=== PATIENT | male | born 1945 | race Caucasian/White ===

== ENCOUNTER 2017-12-12 14:39 | Emergency (ER) | payer BC ==
[~2017-12-12] VITALS: Ht 172.7 cm; Wt 93.4 kg
[2017-12-12 16:33] LABS: Albumin 3.9 g/dL (3.4-5.0); Calcium 9.2 mg/dL (8.5-10.1)
[2017-12-12 16:53] LABS: Basophils # (auto) 0 uL; Eosinophils # (auto) 0 uL; Mean Corpuscular Hemoglobin 34.6 pg (28.0-32.0); Mean Corpuscular Hgb Conc. 34.2 g/dL (32.0-36.0)
[2017-12-12 16:56] LABS: Basophils % (auto) 0.4 % (0.0-2.0); Eosinophils % (auto) 0.1 % (0.0-7.0); Hemoglobin 16.4 g/dL (13.5-17.5); Lymphocytes % (auto) 11.3 % (10.0-50.0); Mean Corpuscular Volume 101.4 fL (80.0-100.0); Monocytes # (auto) 0.6 uL; Monocytes % (auto) 6.2 % (0.0-12.0); Neutrophils # (auto) 7.2 uL; Nucleated Red Blood Cells % 0.1 %; Platelet Count (auto) 165 10^3/uL (140-450); Red Blood Cells 4.74 10^6/uL (4.5-5.90); Red Cell Distribution Width 14.1 % (11.8-14.3); White Blood Cell 8.8 10^3/uL (4.4-10.8)
[2017-12-12 17:37] VITALS: BP 167/82
== END 2017-12-12 18:05 | disposition home or self-care (01) ==
LOC: ER 14:39
DX: R55 Syncope and collapse (principal); E11.9 Type 2 diabetes mellitus without complications; E78.5 Hyperlipidemia, unspecified; I10 Essential (primary) hypertension; M10.9 Gout, unspecified
CPT/HCPCS: 36415; 80053; 85025; 93005

== ENCOUNTER 2025-03-21 13:21 | Emergency (ER) | payer BC ==
[~2025-03-21] VITALS: Ht 172.7 cm; Wt 110.2 kg
--- NOTE | 2025-03-21 13:51 | ED.PDOC ---
SOB-HPI HPI Comments 79-year-old male who comes in with chief complaint of shortness a breath since about 630 this morning. The patient has been coughing with some phlegm and congestion. There has also been some nausea and vomiting. The patient states that he was admitted to another facility where he was told that he may have pneumonia but he does not take antibiotics at this time. In the past he has been seen at [facility]. EN route, the patient was Accu-Chek was 229 the patient was given an inhaler which she tried at home with no relief. Upon arrival, the patient was able to speak in full sentences but is still complaining of some shortness a breath. The patient received Zofran 4 mg IV push for the nausea EN route Time Seen by MD: 13:30 Primary Care Provider: DR RAI Reviewed notes: Nurses Notes, Medications, Allergies (No allergies to medications) Information Source: Patient, Emergency Med Personnel Mode of Arrival: EMS Severity: Mild Timing: Hours Duration: Since onset Context: At Rest PE Risk Factors: Immobilization History of: COPD Prehospital treatment: Accucheck (229), IVF Associated Signs and Symptoms: Chest Pain Quality: Pressure Radiation: No Radiation If cough with SOB: Productive (Green phlegm) Past Medical History PAST MEDICAL HISTORY: COPD, DM, Gout, High Lipids, HTN Surgical History: Denies all surgeries Family History Family History: Family hx of Cancer, Family hx of heart phoebe Social History Smoker: Non-Smoker Alcohol: Occasionally Drugs: Marijuana Lives In: Home Constitutional: denies: chills, diaphoresis, fatigue, fever, malaise, sweats, weakness, others EENTM: denies: blurred vision, double vision, ear bleeding, ear discharge, ear drainage, ear pain, ear ringing, eye pain, eye redness, hearing loss, mouth pain, mouth swelling, nasal discharge, nose bleeding, nose congestion, nose pain, photophobia, tearing, throat pain, throat swelling, voice changes, others Respiratory: reports: cough, shortness of breath; denies: hemoptysis, ort hopnea, SOB at rest, SOB with excertion, stridor, wheezing, others Cardiovascular: denies: chest pain, dizzy spells, diaphoresis, Dyspnea on exertion, edema, irregular heart beat, left arm pain, lightheadedness, palpitations, PND, syncope, others Gastrointestinal: denies: abdomen distended, abdominal pain, blood streaked bowels, constipated, diarrhea, dysphagia, difficulty swallowing, hematemesis, melena, nausea, poor appetite, poor fluid intake, rectal bleeding, rectal pain, vomiting, others Genitourinary: denies: burning, dysuria, flank pain, frequency, hematuria, i ncontinence, penile discharge, penile sore, pain, testicle pain, testicle swelling, urgency, others Neurological: denies: dizziness, fainting, headache, left sided numbness, left sided weakness, numbness, paresthesia, pre-existing deficit, right sided numbness, right sided weakness, seizure, speech problems, tingling, tremors, weakness, others Musculoskeletal: denies: back pain, gout, joint pain, joint swelling, muscle pain, muscle stiffness, neck pain, others Integumetry: denies: bruises, change in color, change in hair/nails, dryness, laceration, lesions, lumps, rash, wounds, others Allergic/Immunocompromised: denies: Difficulty Healing, Frequent Infections, Hives, Itching, others Hematologic/Lymphatic: denies: anemia, blood clots, easy bleeding, easy bruising, swollen glands, others Endocrine: denies: excessive hunger, excessive sweating, excessive thirst, excessive urination, flushing, intolerance to cold, intolerance to heat, unexplained weight gain, unexplained weight loss, others Psychiatric: denies: anxiety, bipolar disorder, depression, hopeless, panic disorder, schizophrenia, sleepless, suicidal, others Physical Exam General Appearance: Moderate Distress, Obese HEENT: Normal ENT Inspection, Pharynx Normal, TMs Normal Neck: Full Range of Motion, Non-Tender, Normal, Normal Inspection Respiratory: Chest Non-Tender, Decreased Breath Sounds, Lungs Clear, No Accessory Muscle Use, Normal Breath Sounds Cardiovascular: No Edema, No JVD, No Murmur, No Gallop, Normal Peripheral Pulses, Regular Rate/Rhythm Breast Exam: Deferred Gastrointestinal: No Organomegaly, Non Tender, No Pulsatile Mass, Normal Bowel Sounds, Soft Genitalia: Deferred Pelvic: Deferred Rectal: Deferred Extremities: No calf tenderness, Normal capillary refill, Normal inspection, Normal range of motion, Non-tender, No pedal edema Musculoskeletal : Apperance: Normal Neurologic: Alert, erp technical lead II-XII nml as Tested, No Motor Deficits, Normal Affect, Normal Mood, No Sensory Deficits Cerebellar Function: Normal Reflexes: Normal Skin: Dry, Normal Color, Warm Lymphatic: No Adenopathy EKG EKG : Pulse Rate (adult): 84 [place]: Normal Cardiac Rhythm: NSR Block: None ST: Nonsp Was a procedure done? Was a procedure done?: No Differential Dx Differential Diagnosis: Asthma, Bronchitis, CHF, COPD, Pneumonia X-Ray, Labs, Meds, VS Vital Signs Date Time Temp Pulse Resp B/P (MAP) Pulse Ox O2 Delivery O2 Flow Rate FiO2 03/21/25 15:15 96.3 83 24 180/90 (120) 99 96.3 03/21/25 13:51 84 03/21/25 13:41 84 Lab Test 03/21/25 17:06 03/21/25 16:01 03/21/25 15:24 03/21/25 15:10 Range/Units Troponin I High Sensitivity 18 12 </=54 ng/L Lactic Acid Level 2.0 0.4-2.0 mmol/L Urine Color Light-yellow Yellow Urine Clarity Clear Clear Urine pH 6.0 5.0-9.0 Urine Specific [place] 1.027 1.001-1.035 Urine Protein Trace H Negative Urine Ketones 4+ H Negative Urine Blood Negative Negative /uL Urine Nitrite Negative Negative Urine Bilirubin Negative Negative Urine Urobilinogen Normal Negative mg/dL Urine Leukocyte Esterase Negative Negative /uL Urine RBC 1 0 - 3 /hpf Urine Microscopic WBC 1 0-3 /HPF Urine Squamous Epithelial Cells Few <5 /hpf Urine Bacteria None seen None Seen /hpf Urine Glucose 4+ H Normal mg/dL Test 03/21/25 14:16 Range/Units White Blood Count 9.6 4.4-10.8 10^3/uL Red Blood Count 5.29 4.5-5.90 10^6/uL Hemoglobin 17.4 13.5-17.5 g/dL Hematocrit 50.3 41.0-53.0 % Mean Corpuscular Volume 95.1 80.0-100.0 fL Mean Corpuscular Hemoglobin 33.0 H 28.0-32.0 pg Mean Corpuscular Hemoglobin Concent 34.7 32.0-36.0 g/dL Red Cell Distribution Width 13.5 11.8-14.3 % Platelet Count 223 140-450 10^3/uL Mean Platelet Volume 9.0 6.9-10.8 fL Neutrophils (%) (Auto) 89.4 H 37.0-80.0 % Lymphocytes (%) (Auto) 8.0 L 10.0-50.0 % Monocytes (%) (Auto) 2.2 0.0-12.0 % Eosinophils (%) (Auto) 0.0 0.0-7.0 % Basophils (%) (Auto) 0.4 0.0-2.0 % Neutrophils # (Auto) 8.6 1.6-8.6 10 ^3/uL Lymphocytes # (Auto) 0.8 0.4-5.4 10 ^3/uL Monocytes # (Auto) 0.2 0-1.3 10 ^3/uL Eosinophils # (Auto) 0 0-0.8 10 ^3/uL Basophils # (Auto) 0 0-0.2 10 ^3/uL Nucleated Red Blood Cells 0.1 % Sodium Level 138 136-145 mmol/L Potassium Level 4.3 3.5-5.1 mmol/L Chloride Level 105 98-107 mmol/L Carbon Dioxide Level 21 20-31 mmol/L Anion Gap 12 5-15 Blood Urea Nitrogen 23 9-23 mg/dL Creatinine 0.97 0.700-1.30 mg/dL Glomerular Filtration Rate Calc 79 >90 mL/min BUN/Creatinine Ratio 23.7 H 10.0-20.0 Serum Glucose 258 H 74-106 mg/dL Lactic Acid Level 3.5 *H 0.4-2.0 mmol/L Calcium Level 10.2 8.7-10.4 mg/dL Troponin I High Sensitivity 10 </=54 ng/L B-Type Natriuretic Peptide 77.46 0-100 pg/mL IV Hep-Lock was established The patient's CBC is within normal limits The chemistry panel is within normal limits except for an elevated glucose of 258 The patient is BNP is within normal limits The troponin levels within normal limits. The lactic acid level is elevated at 3.5 The chest x-ray is negative The patient is being admitted to the hospitalist The troponin levels negative Images Reviewed?: Images reviewed and evaluated by me Time of 1ST Reevaluation: 13:51 Reevaluation 1ST: Unchanged Patient Education/Counseling: Diagnosis, Treatment, Prognosis Family Education/Counseling: No Family Present Departure 1 Departure Time of Disposition: 17:51 Impression: Primary Impression: Acute dyspnea Additional Impressions: Generalized weakness Elevated lactic acid level Disposition: ADMITTED INPATIENT Admit to: Tele Condition: Fair Critical Care Note Critical Care Time?: Yes (45 min-critical care time only) Stability Stability form required: Yes Unstable for transfer: Telemetry monitoring (Telemetry monitoring required), ED Physician Assesment (Clinical assesment) Heart Score Heart Score: Heart Score Response (Comments) Value History Highly Suspicious 2 EKG Repolarization Disturb 1 Age >65 2 Risk Factors >3 or Hx ASHD 2 Troponin Normal limit 0 Total 7 COOKIE MONTOYA MD March 21, 2025 13:51
--- NOTE | 2025-03-21 14:09 | DVH ---
INDICATION: sob TECHNIQUE: Frontal view of the chest. COMPARISON: None FINDINGS: The heart and mediastinal contours are grossly unremarkable. There is no evidence of pleural diseas e. The lungs are clear. The bony structures of the chest are intact without fracture. IMPRESSION: 1. No evidence of acute disease.
[2025-03-21 14:43] LABS: Basophils # (auto) 0 10 ^3/uL (0-0.2); Basophils % (auto) 0.4 % (0.0-2.0); Eosinophils # (auto) 0 10 ^3/uL (0-0.8); Hematocrit 50.3 % (41.0-53.0); Hemoglobin 17.4 g/dL (13.5-17.5); Lymphocytes # (auto) 0.8 10 ^3/uL (0.4-5.4); Mean Corpuscular Hgb Conc. 34.7 g/dL (32.0-36.0); Mean Corpuscular Volume 95.1 fL (80.0-100.0); Monocytes # (auto) 0.2 10 ^3/uL (0-1.3); Monocytes % (auto) 2.2 % (0.0-12.0); Neutrophils # (auto) 8.6 10 ^3/uL (1.6-8.6); Neutrophils % (auto) 89.4 % (37.0-80.0); Nucleated Red Blood Cells % 0.1 %; Platelet Count (auto) 223 10^3/uL (140-450); Red Blood Cells 5.29 10^6/uL (4.5-5.90); Red Cell Distribution Width 13.5 % (11.8-14.3); White Blood Cell 9.6 10^3/uL (4.4-10.8)
[2025-03-21 14:50] LABS: Anion Gap 12 (5-15); Carbon Dioxide 21 mmol/L (20-31); Chloride 105 mmol/L (98-107); Potassium 4.3 mmol/L (3.5-5.1); Sodium 138 mmol/L (136-145)
[2025-03-21 14:51] LABS: Calcium 10.2 mg/dL (8.7-10.4)
[2025-03-21 14:56] LABS: BUN/Creatinine Ratio 23.7 (10.0-20.0); Blood Urea Nitrogen 23 mg/dL (9-23); Glucose 258 mg/dL (74-106)
[2025-03-21 15:03] LABS: Lactic Acid w/Reflex 3.5 mmol/L (0.4-2.0)
[2025-03-21 15:26] LABS: Urine Bacteria None Seen /hpf (None Seen)
[2025-03-21 15:39] LABS: Urine Blood Negative /uL (Negative); Urine Clarity Clear (Clear); Urine Color Light-Yellow (Yellow); Urine Protein, UAD TRACE (Negative); Urine Specific Gravity 1.027 (1.001-1.035); Urine Squamous Epithelial Cell FEW /hpf (<5); Urine Urobilinogen Normal (Negative); Urine WBC 1 /HPF (0-3)
--- NOTE | 2025-03-21 18:28 | ECG ---
[facility] Test Date: 2025-03-21 Test Time: 13:31:09 Pat Name: AVERY ANGEL Department: ED Room: Gender: M [employer] Professional: JORDAN : 1945 Requested By: COOKIE MONTOYA Order Number: [id number] Reading MD: Lan Wilkes Measurements Intervals [place] Rate: 84 P: -84 ND: 253 QRS: -46 QRSD: 102 T: 43 QT: 382 QTc: 452 Interpretive Statements Sinus or ectopic atrial rhythm Prolonged ND interval LAD, consider left anterior fascicular block Low voltage, precordial leads Abnormal R-wave progression, early transition Borderline T abnormalities, anterior leads Electronically Signed On 03-22-2025 9:20:11 PDT by Lan Wilkes Please click the below link to view image of tracing.
[2025-03-21 18:38] VITALS: PULSE 98; RESP 16; O2SAT 95
--- NOTE | 2025-03-22 00:27 | DVHINCON2 ---
SAMANTHA ESTRELLA CYLINDER VALVE REPAIRER 03/22/25 0027: Date of service: March 22, [address] Everett Reason for Consultation Medical management History of Present Illness 79-year-old male with past medical history of DM, hypertension, emphysema presents with sudden onset of shortness of breath that began prior to arrival in the emergency department. While in the emergency department CBC was unremarkable. Na 138, K4.3, BUN 23, creatinine 0.97, BNP 76.46, troponin 09/01/18. Lactic acid 3.5/2.0 which resolved on its own without intervention or treatment. Patient endorses he has been sitting in the emergency department for over 10 hours without treatment. States breathing is much better after extended rest. At this time patient denies fevers, chills, cough, congestion, shortness of breath, chest pain, back pain, palpitations, nausea, vomiting, abdominal pain, leg swelling. Past Medical History DM, hypertension, emphysema Social History Denied ETOH, illicit drug use Allergies: Coded Allergies: NO KNOWN ALLERGIES (Unverified , 12/12/17) Review of Systems 10 systems reviewed and negative except as per HPI Vital Signs Vital Signs Date Time Temp Pulse Resp B/P (MAP) Pulse Ox O2 Delivery O2 Flow Rate FiO2 03/21/25 18:38 98.6 98 16 154/62 (92) 95 98.6 03/21/25 18:38 Room Air* 0 21 Physical Exam GENERAL: Patient appearing stated age, in no acute distress. HEENT: Pupils equal and reactive to light and accommodation. Extraocular muscles intact. Mucous membranes moist. Conjunctivae pink. Anicteric sclerae. LUNGS: Bilateral air entry. No wheezes, rhonchi or rales. HEART: Regular rate and rhythm. Normal S1 and S2. ABDOMEN: BS normoactive, soft, nontender, and nondistended. No CVA tenderness. EXTREMITIES: No clubbing, cyanosis, edema. No calf tenderness. Pedal pulses 2+. NEUROLOGICAL: The patient is alert and oriented times 3. CN II-XII intact. No focal deficits on gross sensory or motor examination Labs/Diagnostic Data Labs Test 03/21/25 17:06 03/21/25 16:01 03/21/25 15:24 03/21/25 14:16 Range/Units Troponin I High Sensitivity 18 </=54 ng/L Lactic Acid Level 2.0 0.4-2.0 mmol/L Urine Color Light-yellow Yellow Urine Clarity Clear Clear Urine pH 6.0 5.0-9.0 Urine Specific [place] 1.027 1.001-1.035 Urine Protein Trace H Negative Urine Ketones 4+ H Negative Urine Blood Negative Negative /uL Urine Nitrite Negative Negative Urine Bilirubin Negative Negative Urine Urobilinogen Normal Negative mg/dL Urine Leukocyte Esterase Negative Negative /uL Urine RBC 1 0 - 3 /hpf Urine Microscopic WBC 1 0-3 /HPF Urine Squamous Epithelial Cells Few <5 /hpf Urine Bacteria None seen None Seen /hpf Urine Glucose 4+ H Normal mg/dL White Blood Count 9.6 4.4-10.8 10^3/uL Red Blood Count 5.29 4.5-5.90 10^6/uL Hemoglobin 17.4 13.5-17.5 g/dL Hematocrit 50.3 41.0-53.0 % Mean Corpuscular Volume 95.1 80.0-100.0 fL Mean Corpuscular Hemoglobin 33.0 H 28.0-32.0 pg Mean Corpuscular Hemoglobin Concent 34.7 32.0-36.0 g/dL Red Cell Distribution Width 13.5 11.8-14.3 % Platelet Count 223 140-450 10^3/uL Mean Platelet Volume 9.0 6.9-10.8 fL Neutrophils (%) (Auto) 89.4 H 37.0-80.0 % Lymphocytes (%) (Auto) 8.0 L 10.0-50.0 % Monocytes (%) (Auto) 2.2 0.0-12.0 % Eosinophils (%) (Auto) 0.0 0.0-7.0 % Basophils (%) (Auto) 0.4 0.0-2.0 % Neutrophils # (Auto) 8.6 1.6-8.6 10 ^3/uL Lymphocytes # (Auto) 0.8 0.4-5.4 10 ^3/uL Monocytes # (Auto) 0.2 0-1.3 10 ^3/uL Eosinophils # (Auto) 0 0-0.8 10 ^3/uL Basophils # (Auto) 0 0-0.2 10 ^3/uL Nucleated Red Blood Cells 0.1 % Sodium Level 138 136-145 mmol/L Potassium Level 4.3 3.5-5.1 mmol/L Chloride Level 105 98-107 mmol/L Carbon Dioxide Level 21 20-31 mmol/L Anion Gap 12 5-15 Blood Urea Nitrogen 23 9-23 mg/dL Creatinine 0.97 0.700-1.30 mg/dL Glomerular Filtration Rate Calc 79 >90 mL/min BUN/Creatinine Ratio 23.7 H 10.0-20.0 Serum Glucose 258 H 74-106 mg/dL Calcium Level 10.2 8.7-10.4 mg/dL B-Type Natriuretic Peptide 77.46 0-100 pg/mL Assessment Dyspnea, resolved Lactic acidosis, resolved without treatment Patient was seen and evaluated and [facility] emergency department treatment chairs. The patient's chart was reviewed in the entirety including vital signs, lab results, imaging. At the time of my evaluation patient has been sitting in the emergency department lobby in an excess of 10 hours without any treatment. At this time patient is hemodynamically stable with an oxygen saturation of 96% on room air. Patient states that episode of dyspnea has resolved. Lactic acid draw was 3.5 and improved to 2.0 without IV fluid hydration or intervention. At this time I have discussed clinical findings with the patient who prefers to be discharged home. Plan/Recommendation Patient can be discharged home. [facility] case management has been consulted to set up home safety evaluation. Will also follow up at [facility] urgent care on Tuesday for reevaluation of shortness of breath including CBC, CMP, chest x-ray. Plan of care was discussed in detail with the patient who agrees with and prefers to be discharged home at this time. Patient was provided with strict ER precautions including but not limited to dizziness, syncope, headache, worsening shortness of breath, chest pain, palpitations, nausea, vomiting, leg swelling. If any of these occur please return to the nearest emergency department for further evaluation and treatment. Plan discussed with: Patient CAMPBELL LING MD 03/23/25 1606: Allergies: Coded Allergies: NO KNOWN ALLERGIES (Unverified , 12/12/17) Plan/Recommendation Patient's chart is reviewed and discussed with the nurse practitioner. I agree with the nurse practitioner's evaluation, documentation, assessment and care plan as outlined. SAMANTHA ESTRELLA NP March 22, 2025 00:27 CAMPBELL LING MD March 23, 2025 16:06
--- NOTE | 2025-03-22 00:55 | ED.PDOC ---
Departure 1 Departure Time of Disposition: 00:54 (Patient is feeling significantly better and leaving home.) Impression: Primary Impression: Acute dyspnea Additional Impressions: Elevated lactic acid level Generalized weakness Disposition: HOME / SELF CARE / HOMELESS Admit to: Tele Condition: Stable NAYELY MEHTA MD March 22, 2025 00:55
[2025-03-22 01:34] VITALS: BP 159/61; PULSE 82; RESP 20; TEMP 98.1; O2SAT 96
== END 2025-03-22 01:34 | disposition home or self-care (01) ==
LOC: EDBD 13:21 → ER 13:32
DX: R06.00 Dyspnea, unspecified (principal); E87.20 Acidosis, unspecified; R74.02 Elevation of levels of lactic acid dehydrogenase [LDH]; R53.1 Weakness; I10 Essential (primary) hypertension; E11.9 Type 2 diabetes mellitus without complications; F12.10 Cannabis abuse, uncomplicated
CPT/HCPCS: 36415; 71045; 80048; 81001; 83605; 83880; 84484; 85025; 87040; 93005